=== PATIENT | female | born 1965 | race Caucasian/White ===

== ENCOUNTER → 2022-11-08 15:34 | Outpatient (CLI) | payer OTHER, SELFPAY ==
--- NOTE | 2022-11-08 | DI.MG.S_ITS ---
BILATERAL DIGITAL SCREENING MAMMOGRAM 3D/2D WITH CAD: 11/08/2022 CLINICAL: Baseline exam. Routine screening. No prior exams were available for comparison. There are scattered areas of fibroglandular density in both breasts (category b / 25%-50% glandular tissue). Current study was also evaluated with a Computer Aided Detection (CAD) system. No significant masses, calcifications, or other findings are seen in either breast. IMPRESSION: NEGATIVE There is no mammographic evidence of malignancy. A 1 year screening mammogram is recommended. Based on the Tyrer Cuzick model (a risk assessment model) the patient's lifetime risk is 8.3% and her 10 year risk is 2.6%. According to the ACR, ACS, and NCCN guidelines, an annual breast MRI exam along with mammogram is recommended if the patient's lifetime risk is 20% or greater. This exam was interpreted at Station ID: [id number]. NOTE: For mammograms, a report in lay terms will be sent to the patient. Approximately 15% of breast malignancies will not be visualized mammographically. In the management of a palpable breast mass, a negative mammogram must not discourage biopsy of a clinically suspicious lesion. Electronically Signed By: Blanca [email or web address]:11/09/2022 08:27:29 letter sent: Normal Exam ACR BI-RADS Category 1: Negative 3341F
== END ==
PROVIDERS: PCP Family Medicine; Referring Provider Family Medicine; Visit Provider Family Medicine
DX: Z12.31 Encounter for screening mammogram for malignant neoplasm of breast (principal)
CPT/HCPCS: 77063; 77067

== ENCOUNTER 2022-12-10 13:30 | Day surgery (SDC) | payer OTHER, SELFPAY ==
[2022-12-10 15:44] VITALS: BP 137/91; PULSE 80; RESP 16; TEMP 36.1; O2SAT 139; BMI 20.9
--- NOTE | 2022-12-10 16:14 | PM.HP.1 ---
History of Present Illness History of Present Illness Date Patient Seen: 12/10/22 Time Patient Seen: 16:14 Chief complaint: MDC Narrative: 57-year-old female presents for her 2nd screening colonoscopy. Her last 1 was in [place] and there were polyps. No family history of colon cancer and no suspicious symptoms. All of her questions were answered and she would like to proceed. [facility] Social History household members: significant other alcohol intake: current Meds Home Medications and Allergies Home Medications Medication Instructions Recorded Confirmed Type diazepam 5 mg tablet (Valium) 5 mg PO BEDTIME PRN anxiety #1 tab 11/11/22 Rx sodium,potassium,mag sulfates 17.5 See Rx Instructions PO .COMPLEX 11/11/22 Rx gram-3.13 gram-1.6 gram oral soln #354 mL (Suprep Bowel Prep Kit) Exam Vital Signs (past 8 hours): - 12/10/22 15:44 Temperature 96.9 F L Pulse Rate 80 Respiratory Rate 16 Blood Pressure 137/91 H Pulse Oximetry 139 H Oxygen Delivery Method Room Air Oxygen Delivery Method Room Air Const General: cooperative, healthy appearing and comfortable Nutritional Appearance: well nourished and thin Orientation: alert, awake and oriented x3 HENMT Head: normal to inspection Eyes General: appearance normal, both eyes and all related structures Resp Effort & Inspection: normal respiratory effort and able to speak in complete sentences GI Palpation: soft and No tender Assessment & Plan Assessment and plan (1) Colon cancer screening: Status: Acute (2) History of colon polyps: Status: Acute
--- NOTE | 2022-12-10 16:15 | P.HP_ITS ---
History of Present Illness History of Present Illness Chief complaint: [facility] Narrative: 57-year-old female presents for her 2nd screening colonoscopy. Her last 1 was in [place] 5 or 6 years ago, and there were polyps; she was told to follow up in 5 years. No family history of colon cancer and no suspicious symptoms. All of her questions were answered and she would like to proceed. [facility] Social History household members: significant other alcohol intake: current Meds Home Medications and Allergies Home Medications Medication Instructions Recorded Confirmed Type diazepam 5 mg tablet (Valium) 5 mg PO BEDTIME PRN anxiety #1 tab 11/11/22 Rx sodium,potassium,mag sulfates 17.5 See Rx Instructions PO .COMPLEX 11/11/22 Rx gram-3.13 gram-1.6 gram oral soln #354 mL (Suprep Bowel Prep Kit) Exam Vital Signs (past 8 hours): - 12/10/22 15:44 Temperature 96.9 F L Pulse Rate 80 Respiratory Rate 16 Blood Pressure 137/91 H Pulse Oximetry 139 H Oxygen Delivery Method Room Air Oxygen Delivery Method Room Air Assessment & Plan Assessment and plan (1) History of colon polyps: Status: Acute (2) Colon cancer screening: Status: Acute Assessment & Plan narrative: Presents today for screening colonoscopy I discussed the risks benefits and alternatives including but not limited to perforation of the colon and an incomplete exam she fully understands these risks and would like to proceed.
--- NOTE | 2022-12-10 16:45 | P.OP.COLON_ITS ---
Operative Date/Time/Diagnoses Date of procedure: 12/10/22 Time of procedure: 16:45 Pre-op diagnosis: Colon cancer screening, history of polyps, no family history of colon cancer Post-op diagnosis: same Procedure & Clinicians Study performed: Colonoscopy Indications: Colon cancer screening, history of polyps, no family history of colon cancer Surgeon: Muna Mcneal Procedure Notes Procedure in detail: Patient was taken to the endoscopy suite and placed in a left lateral decubitus position. A time-out was performed. With the help of anesthesiologist conscious sedation was induced and monitored throughout the case. A digital rectal exam was performed and there were no masses or strictures. There were small external skin tags. The colonoscope was introduced into the anal canal and advanced through to the cecum. A photograph of the appendiceal orifice was obtained. The bowel prep was excellent [place] bowel prep score of 3. The scope was then withdrawn for a total of 9 minutes and no polyps were seen. The scope was then retroflexed and a photograph of the internal hemorrhoidal piles was obtained. There was at least 1 pile of prominent internal hemorrhoids. Findings: internal hemorrhoids Specimen(s): none sent Complications: none Post-procedure Recommendations: Colonoscopy in 10 years
[2022-12-10 16:48] VITALS: BP 115/79; PULSE 76; RESP 23; TEMP 36.3; O2SAT 99
[2022-12-10 16:53] VITALS: BP 115/72; PULSE 76; RESP 12; O2SAT 100
[2022-12-10 16:58] VITALS: BP 130/86; PULSE 65; RESP 18; O2SAT 100
[2022-12-10 17:15] VITALS: BP 124/83; PULSE 68; RESP 17; TEMP 37.1; O2SAT 100
== END 2022-12-10 17:15 | disposition home or self-care (01) ==
PROVIDERS: PCP Family Medicine; Referring Provider Surgery; Visit Provider Surgery
PROC: 0DJD8ZZ Inspection of Lower Intestinal Tract, Via Natural or Artificial Opening Endoscopic (ICD-10-PCS; CPT 45378; principal; 2022-12-10 14:15)
DX: Z12.11 Encounter for screening for malignant neoplasm of colon (principal); Z86.010 Personal history of colon polyps; K64.8 Other hemorrhoids
CPT/HCPCS: 45378; J2704

== ENCOUNTER → 2024-06-29 15:13 | Outpatient (CLI) | payer OTHER, SELFPAY ==
--- NOTE | 2024-06-29 15:16 | DI.MG.S_ITS ---
MM screening mammo BI: 06/29/2024. BI-RADS: 1 CLINICAL: 59-year old female for bilateral screening mammogram. Tyrer-Cuzick lifetime risk of 8.7%. No personal or first-degree family history of breast cancer. PRIOR EXAMS 11/08/2022. MAMMOGRAPHY TECHNIQUE: 2D and 3D (tomosynthesis) digital mammographic views obtained, with additional images as needed for full coverage. Current study was also evaluated with a Computer Aided Detection (CAD) system. DENSITY B. There are scattered areas of fibroglandular density. MAMMOGRAPHY FINDINGS Bilateral: No suspicious mass, asymmetry, microcalcification, or other abnormality seen. IMPRESSION: * No evidence of malignancy. RECOMMENDATIONS Bilateral * Annual screening mammography. OVERALL ASSESSMENT CATEGORY BI-RADS-1: Negative. The [employer] recommends annual screening mammography beginning at age 40 for women with average risk of breast cancer. ELECTRONICALLY SIGNED: Romulo Coppola M.D. on 06/30/2024 at 08:19:59 AM PT Interpreting Station ID: [id number]
== END ==
LOC: MAMMO 15:15
PROVIDERS: PCP Family Medicine; Referring Provider Family Medicine; Visit Provider Family Medicine
DX: Z12.31 Encounter for screening mammogram for malignant neoplasm of breast (principal)
CPT/HCPCS: 77063; 77067